=== PATIENT | female | born 1970 | race Caucasian/White ===

== ENCOUNTER → 2019-05-15 | Day surgery (SDC) | payer BC ==
[2019-05-13 15:36] VITALS: BMI 29.1
[~2019-05-15] MED LIST: BUPIVACAINE HCL/PF 0.5% (5 MG/ML) 30 ML VIAL IJ ONE; EPHEDRINE SULFATE/0.9% NACL/PF 50 MG/10 ML SYRINGE NR ONE; LACTATED RINGERS SOLUTION 1,000 ML IV SCH; LIDOCAINE 1%-EPI 1:100,000 30 ML MDV IJ ONE; LIDOCAINE HCL 1%, 10 MG/ML (20ML VIAL) PNB ONE; MIDAZOLAM HCL 2 MG/2 ML SINGLE DOSE VIAL ONE; ONDANSETRON 4 MG/2 ML VIAL IVPUSH PRN; PROPOFOL 20 ML ONE; ROCURONIUM BROMIDE 50 MG/5 ML SYRINGE ONE; SUCCINYLCHOLINE CHLORIDE 200 MG/10 ML SYRINGE ONE; THROMBIN (BOVINE) 5,000 UNIT VIAL TP ONE; ceFAZolin SODIUM 1 GM VIAL IVPB ONE; fentaNYL CITRATE 250 MCG/5 ML VIAL ONE
--- NOTE | 2019-05-15 14:27 | HP ---
History & Physical Update - History History: No Change - Physical Physical: No Change - Assessment Assessment: No Change - Plan Plan: No Change (no change since visit on 05/07/19)
--- NOTE | 2019-05-15 18:15 | OP ---
Operative Note - Note: Operative Date: 05/15/19 Pre-Operative Diagnosis: Right parotid tumor Operation: Right parotidectomy and facial nerve dissection Post-Operative Diagnosis: Same as Pre-op Surgeon: Darinel Lechuga Campaign Associate: Trung Oconnell Anesthesiologist/CRIMINAL JUSTICE TEACHER: Robe Justin Anesthesia: General Specimens Removed: Right parotid mass Operative Report Dictated: Yes
--- NOTE | 2019-05-15 18:16 | SURG ---
Surgery One Piece Expansion Maker Hand Note One Piece Expansion Maker Hand: Trung Oconnell PA-C Date of Service: 05/15/19 Diagnosis: Right parotid tumor Procedure: Right parotidectomy and facial nerve dissection I was present for the entirety of the operative procedure. For further detail, please refer to operative report. Visit type - Case Type Case Type: Scheduled - Emergency Emergency Visit: No - New patient This patient is new to me today: Yes Date on this admission: 05/15/19 - Critical Care Critical Care patient: No
[2019-05-15 20:22] VITALS: BP 143/85; PULSE 70; TEMP 97.6
--- NOTE | 2019-05-16 11:59 | OP ---
DATE OF OPERATION: 05/15/2019 SURGICAL ATTENDING: Hermann Wilkinson MD ELECTRIC SEALING MACHINE OPERATOR: Trung Oconnell PA-C PREOPERATIVE DIAGNOSIS: Right parotid tumor. POSTOPERATIVE DIAGNOSIS: Right parotid tumor. ANESTHESIA: General endotracheal. PROCEDURE: Right superficial parotidectomy with facial nerve dissection. DESCRIPTION OF PROCEDURE: The patient was taken into the operating room, placed in a supine position, endotracheally intubated. Eyes were protected. Nerve monitors were placed. Shoulder roll was placed. The neck was then prepped and draped in the usual sterile fashion. Local anesthesia was injected. A sickle-shaped incision starting anterior to the tragus of the right ear, going underneath the earlobe, back to the hairline, and anteriorly onto an anterior-superior neck skin crease was then made. This was carried down through subcutaneous tissues and platysma. Subplatysmal flaps were raised anteriorly, and flap hooks were placed for exposure. The greater auricular nerve was dissected and preserved. The anterior border of the sternocleidomastoid muscle was dissected as was the digastric muscle. The facial nerve was identified emerging from the tympanomastoid groove. It was dissected anteriorly, and all branches were dissected and preserved. The superficial lobe of the parotid gland including the tumor was reflected anteriorly, and the parotid tissue was transected circumferentially around the tumor, taking care to preserve all branches of the nerve. In this way, the superficial lobe of the right parotid gland was removed along with the intact tumor. It was marked with sutures and sent to Pathology for evaluation. Hemostasis was achieved with electrocautery. Nerve monitoring was used throughout, and the nerve remained intact. The wound was then closed in 3 layers over a Hemovac drain which was sutured to the skin. Dermabond was placed. The patient was then awakened, extubated, and taken to Recovery in stable condition. Dr. Wilkinson, the attending surgeon, was present throughout the entire procedure. HERMANN WILKINSON M.D. [id number]
--- NOTE | 2019-05-19 14:24 | PATH ---
Surgical Pathology Report Patient Name: JEROME BOYER [facility]. Rec. #: [id number] /Age/Gender: 1970 (Age: 48) / F Account: [id number] Location: [facility] SURGICAL Taken: 05/15/2019 Received: 05/18/2019 Reported: 05/19/2019 Physicians: Darinel Lechuga M.D. 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 SURGICAL MARGINS ARE NEGATIVE. Electronically Signed Mami Child M.D. Gross Description Received in formalin labeled "right parotid mass" is a 4.5 x 3.3 x 2.1 cm irregular portion lloyd-noonan soft tissue. There is a short suture marking the superior aspect and a long suture marking the lateral to the specimen, per the surgeon. The specimen is inked as follows: Superior and lateral blue; inferior green; medial yellow; anterior red; deep black. The specimen is serially sectioned from lateral to medial. Sectioning reveals a 1.7 x 1.6 x 1.1 cm homogeneous lloyd, well-circumscribed mass. The mass is focally 0.1 cm from the deep margin, 0.2 cm from the anterior margin and 0.5 cm from the superior margin. The remaining margins appear clear of the mass. The remaining parotid parenchyma displays yellow, lobulated soft tissue. Building Construction Superintendent sections are submitted in 7 cassettes as follows: [id number] submitted sections of tumor (each with superior, anterior and deep margins); 5-inferior margin; 6-medial margin; 7-lateral margin. /05/18/2019 saudi/05/18/2019
== END | disposition home or self-care (01) ==
LOC: JASU-SURG 11:04
PROVIDERS: ATTEND Surgery
PROC: 00BM0ZZ Excision of Facial Nerve, Open Approach (ICD-10-PCS; 2019-05-15)
PROC: 0CB80ZZ Excision of Right Parotid Gland, Open Approach (ICD-10-PCS; principal; 2019-05-15 13:00)
DX: D11.0 Benign neoplasm of parotid gland (principal)
CPT/HCPCS: 84703; 88307-TC; 94760